=== PATIENT | male | born 1960 ===

== ENCOUNTER → 2019-07-07 | Day surgery (SDC) | payer OTHER ==
[~2019-07-07] MED LIST: FENTANYL CITRATE/PF 100MCG/2 ML INJ ONE; MIDAZOLAM HCL 2 MG/2 ML VIAL ONE; PROPOFOL IV EMULSION 10 MG/ML 50 ML VIAL ONE
--- OUTSIDE RECORDS SUMMARY | 2019-07-07 11:21 | XMS REPORT ---
Author Author [facility] Address Unknown Phone Unavailable Care Team Providers Care Motor Vehicles Supervisor Name Role Phone Unavailable Unavailable Problems This patient has no known problems. Allergies, Adverse Reactions, Alerts This patient has no known allergies or adverse reactions. Medications This patient has no known medications. Encounters Start Date/Time End Date/Time Encounter Type Admission Type Attending Clinicians Care Facility Care Department Encounter ID 2019-01-15 06:55:00 2019-01-15 06:55:00 [facility] [id number]
[2019-07-07 12:32] VITALS: BP 118/72
== END | disposition home or self-care (01) ==
LOC: OR 11:18
PROVIDERS: ATTEND Internal Medicine
DX: B18.2 Chronic viral hepatitis C (principal); K29.50 Unspecified chronic gastritis without bleeding; B96.81 Helicobacter pylori [H. pylori] as the cause of diseases classified elsewhere; K31.89 Other diseases of stomach and duodenum; F10.10 Alcohol abuse, uncomplicated; E66.9 Obesity, unspecified; R00.1 Bradycardia, unspecified
CPT/HCPCS: 43239; 93005; J2250; J2704; J3010; 43235